=== PATIENT | male | born 1950 | race Caucasian/White ===

== ENCOUNTER 2024-04-19 13:12 | Outpatient (CLI) | payer BC, MEDICARE, SELFPAY ==
--- NOTE | ~2024-04-19 | CT_ITS ---
CT OF left knee EXAMINATION: CT knee LT w con DATE: 04/19/2024 14:05 INDICATION: TECHNIQUE: Computed tomography (CT) of the left knee was performed with intra-articular contrast. Aut omated exposure control and iterative reconstruction technique were employed. The dose-length product was 482.30 mGy-cm. COMPARISON: X-ray fluoroscopy injection left knee, same date. X-ray left knee 04/09/2024, images only. FINDINGS: Contrast adequately fills the joint space. Complex tear of the medial meniscus involving vertical and oblique tears in the body, extending into a horizontally oriented tear in the posterior horn. [employer] ior horn appears disproportionately large, as can be seen with the flipped fragment sign. Subchondral cysts in the LFC and medial tibial plateau. Severe cartilage thinning in the medial compartment with multifocal areas of full-thickness cartilage loss. The lateral meniscus is intact. Mild diffuse cart ilage thinning on the LFC. The ACL and PCL appear to be grossly intact. There is moderate medial join t space narrowing and mild tricompartmental osteophytosis. Cartilaginous fissure along the median rid ge of the patella. No fracture or dislocation. IMPRESSION: Complex tear of the medial meniscus involving a possible flipped fragment. Tricompartmental osteoarthritic change, moderate severe in the medial compartment where multifocal ar eas of full-thickness cartilage loss are noted. Full-thickness cartilage fissure on the median ridge of the patella. Reviewed, dictated and finalized at location K. IMPRESSION: Complex tear of the medial meniscus involving a possible flipped fragment. Tricompartmental osteoarthritic change, moderate severe in the medial compartme nt where multifocal areas of full-thickness cartilage loss are noted. Full-thic kness cartilage fissure on the median ridge of the patella.
--- NOTE | ~2024-04-19 | XR_ITS ---
EXAMINATION: XR fl inj knee LT for MR/CT DATE: 04/19/2024 14:05 INDICATION: Other tear of medial meniscus, recurrent injury. No prior surgery. TECHNIQUE: A time-out was performed to verify the patient's name, date of , and procedure to b e performed. The procedure including the risks, benefits, and alternatives was discussed with the pat ient. Risks discussed included bleeding and infection. The patient understood the risks and agreed to proceed. The skin overlying the left knee joint was prepped and draped in usual sterile fashion. An esthetic was administered with 1% lidocaine subcutaneously. A 22 G needle was advanced under fluoros copic guidance into the joint. Subsequently, injectate consisting of 40 mL of 1:10 1% lidocaine and 1:2 Omnipaque 240 was instilled. The needle was removed and the entry site was cleaned and dressed. There were no immediate complications. Fluoroscopy exposure time was 0.1 minutes. The total number o f images was 2. FINDINGS: Real-time fluoroscopy demonstrates the needle and contrast in the left knee joint. IMPRESSION: 1. Successful left knee joint injection of contrast for subsequent CT arthrography. Reviewed, dictated and finalized at location A. IMPRESSION: 1. Successful left knee joint injection of contrast for subsequent CT arthrogra phy.
== END 2024-04-19 13:13 | disposition home or self-care (01) ==
PROVIDERS: PCP Internal Medicine; Visit Provider Orthopaedic Surgery
DX: S83.232A Complex tear of medial meniscus, current injury, left knee, initial encounter (principal); M17.12 Unilateral primary osteoarthritis, left knee; X58.XXXA Exposure to other specified factors, initial encounter
CPT/HCPCS: 20610; 73701; 77002; Q9966

== ENCOUNTER 2024-05-31 08:17 | Outpatient (CLI) | payer BC, MEDICARE, SELFPAY ==
--- NOTE | 2024-05-31 08:29 | ECG_ITS ---
Test Date: 2024-05-31 08:41:25 Measurements Intervals [place] Rate: 65 P: 258 KS: 215 QRS: -68 QRSD: 212 T: 83 QT: 535 QTc: 558 Interpretive Statements ELECTRONIC ATRIAL PACEMAKER ELECTRONIC VENTRICULAR PACEMAKER BASELINE ARTIFACT- I, II, III, AVR, AVL, AVF NO FURTHER INTERPRETATION IS POSSIBLE ATYPICAL ECG No previous ECG available for comparison Electronically Signed On 05-31-2024 12:34:11 CDT by Dalton Brice D.O.
[2024-05-31 09:11] LABS: Anion Gap 10 mmol/L (4-12); Blood Urea Nitrogen 12 mg/dL (9-20); Calcium 9.3 mg/dL (8.4-10.2); Carbon Dioxide 32 mmol/L (22-30); Chloride 89 mmol/L (98-107); Estimated Glomerular Filt Rate > 60; Glucose 135 mg/dL (65-110); Sodium 131 mmol/L (137-145)
== END 2024-05-31 08:18 | disposition home or self-care (01) ==
LOC: ANHSURGERY 08:22
PROVIDERS: Anesthesiology; PCP Internal Medicine; Visit Provider Orthopaedic Surgery
DX: Z01.812 Encounter for preprocedural laboratory examination (principal); Z01.810 Encounter for preprocedural cardiovascular examination; I10 Essential (primary) hypertension; Z51.81 Encounter for therapeutic drug level monitoring; Z95.0 Presence of cardiac pacemaker
CPT/HCPCS: 36415; 80048; 93005

== ENCOUNTER 2024-06-10 00:57 | Day surgery (SDC) | payer BC, MEDICARE, SELFPAY ==
[2024-05-30 09:44] VITALS: BMI 27.3
--- NOTE | 2024-05-30 10:22 | PC.NURSE ---
Report to the Outpatient Waiting Room, entrance under the green pavilion located off [facility], at time ____08:00am___ on date _06/10/24 . Planned Procedure Time: ____10:00am____. Time changes happen often and if your time is changed the preop area will call you the afternoon before. - You and your visitor will be asked to self-screen and do not enter if you have any COVID symptoms. - A mask is optional within the hospital at this time. Patients may have clear liquids (water, carbonated beverages, clear teas, apple juice) until 3 hours prior to surgery with a maximum of 20 ounces. - No food from midnight until time of surgery Take the following medications with a SIP of water the morning of surgery: Flecainide & Metoprolol DO NOT STOP ANY OF YOUR OTHER PRESCRIPTION MEDICATIONS PRIOR TO SURGERY ?EXCEPT THE FOLLOWING Medications to discontinue per physician Hold Eliquis per Dr Masterson . Hold all vitamins, supplements 3 days preop per Anesthesia- last dose to take 06/06/24 Please no make-up, nail italian, hairspray, perfume, deodorant, or body powder the day of surgery. No jewelry (including any body piercings) or valuables the day of surgery, leave them at home. Please take a shower or bath the night before, or the morning of, surgery with an antibacterial soap. Wear comfortable, loose fitting clothing. - Jewelry must be removed prior to entering the operating room. Rings and piercings that are not removed may be cut off. - The hospital will not accept responsibility for valuables. - Please leave all valuables, including medications, at home the day of surgery. If you are going home after surgery, a licensed electric train driver must drive you home. - NO public transportation without another adult if you receive anesthesia. - We recommend that an adult stay with you for 24 hours following discharge. - We also recommend that you do not drive, make important decision, drink alcoholic beverages, or take any drugs that were not prescribed by your health care provider for at least 24 hours after your discharge time. Follow any additional instructions given to you from your surgeon. If you or anyone in your household have experienced Covid symptoms in the past week, please notify your surgeon or the nurse liaison at the phone number below for possible testing. Telephone instructions given to patient ____and asked if any additional questions and then verbalized understanding. Patient advised to call surgeon office or pre surgery nurse liaison [phone] if any additional questions.
--- NOTE | 2024-06-06 08:36 | PM.IMHP ---
H&P: HPI History of Present Illness Date/Time: 06/06/24 08:36 Chief Complaint: Patient is catching and locking and meniscal pathology left knee. He has failed conservative treatment like to consider knee arthroscopy. Review of Systems Musculoskeletal: Musculoskeletal: Reports arthralgias, Reports joint swelling and Reports stiffness [facility] Past Medical History Medical History Afib Diabetes History of gastroscopy Hyperlipidemia Hypertension Pacemaker Surgical History Surgical History History of colonoscopy History of hand surgery bilateral History of tonsillectomy History of tonsillectomy and adenoidectomy Family History Family History Mother Cancer Sibling Cancer Social History Social History Smoking status: Never smoker Alcohol intake: current Drinks per week: 12 Alcohol use details: beer Substance use type: does not use Current Housing: Decline to Answer Concerned About Future Housing: Decline to Answer Difficulty Paying Gas/Electric Bills: Decline to Answer Difficulty Paying for Meds: Decline to Answer Currently Unemployed: Decline to Answer Education: Decline to Answer Difficulty w/ Childcare or Family Care: Decline to Answer Living arrangements: with family Occupation/Education: occupation 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 [employer] concerns: No Meds Home Medications and Allergies Home Medications Medication Instructions Recorded Confirmed Type apixaban 5 mg tablet (Eliquis) 5 mg PO BID 04/09/24 05/30/24 History flecainide 100 mg tablet 100 mg PO Q12H 04/09/24 05/30/24 History lisinopril 20 1 tablet PO DAILY 04/09/24 05/30/24 History mg-hydrochlorothiazide 25 mg tablet magnesium oxide 400 mg (241.3 mg 400 mg PO DAILY 04/09/24 05/30/24 History magnesium) tablet metformin 500 mg tablet 500 mg PO BID 04/09/24 05/30/24 History metoprolol tartrate 50 mg tablet 50 mg PO BID 04/09/24 05/30/24 History rosuvastatin 10 mg tablet (Crestor) 10 mg PO DAILY 04/09/24 05/30/24 History acetaminophen 500 mg capsule 1,000 mg PO Q6H PRN Pain 05/30/24 05/30/24 History omega 5-suv-djs-fish oil 1,000 mg 1 cap PO BID 05/30/24 05/30/24 History (120 mg-180 mg) capsule (Fish Oil) Allergies Allergy/AdvReac Type Severity Reaction Status Date / Time No Known Allergies Allergy Verified 05/30/24 09:36 Exam Narrative: On exam he has mechanical catching and locking with manipulation of his left knee. He is tender medially has a positive Robin's. Neurologically he is grossly intact. He walks with an antalgic gait. He has pain with any motion. Eyes: General: appearance normal, both eyes and all related structures Neck: Neck: supple Resp: Effort & Inspection: normal respiratory effort Cardio: Rate: regular rate Rhythm: regular rhythm Radiology Reports: Comments: Patient: [place] CT OF left knee EXAMINATION: CT knee LT w con DATE: 04/19/2024 14:05 INDICATION: TECHNIQUE: Computed tomography (CT) of the left knee was performed with intra-articular contrast. Automated exposure control and iterative reconstruction technique were employed. The dose-length product was 482.30 mGy-cm. COMPARISON: X-ray fluoroscopy injection left knee, same date. X-ray left knee 04/09/2024, images only. FINDINGS: Contrast adequately fills the joint space. Complex tear of the medial meniscus involving vertical and oblique tears in the body, extending into a horizontally oriented tear in the posterior horn. Posterior horn appears disproportionately large, as can be seen with the flipped fragment sign. Subchondral cysts in the LFC and medial tibial plateau. Severe cartilage thinning in the medial
[2024-06-10] VITALS (8 sets, daily range): BP systolic 110–132; BP diastolic 74–78; PULSE 69–78; RESP 9–14; TEMP 36.2; O2SAT 96–100; BMI 27.6
[2024-06-10 06:42] LABS: Glucose Point of Care 122 mg/dl (65-105)
[2024-06-10] MEDS: KETOROLAC 15 MG/ML VIAL (*BKC) IV PUSH (06:45)
[2024-06-10] MEDS: ACETAMINOPHEN 500 MG TABLET 1000 MG PO (06:45)
[2024-06-10] MEDS: LACTATED RINGERS 1,000 ML 30 ML IV CONT (06:48)
--- NOTE | 2024-06-10 07:02 | WPDHPUPDATE1 ---
History and Physical Update Update Date/Time: 06/10/24 07:02 History and Physical has been reviewed, including an updated exam of the patient. There are NO changes in the patient's condition. Risks, benefits, and alternatives have been discussed and questions answered. Patient agrees to proceed with procedure.
[2024-06-10 07:08] LABS: Anion Gap 11 mmol/L (4-12); Blood Urea Nitrogen 11 mg/dL (9-20); Calcium 9.1 mg/dL (8.4-10.2); Carbon Dioxide 28 mmol/L (22-30); Chloride 93 mmol/L (98-107); Estimated CRCL calculation 65 ml/min; Estimated Glomerular Filt Rate > 60; Glucose 118 mg/dL (65-110); Potassium 3.6 mmol/L (3.4-5.0); Sodium 132 mmol/L (137-145)
--- NOTE | 2024-06-10 07:18 | WPDANESEPPF ---
Anes - Initial Pre Proc Eval Procedure: Operation Date: 06/10/24 07:30 Proposed Procedures p Left Knee Arthroscopy with Partial Meniscectomy, Proceed As Indicated - Mina Masterson MD Date/Time: 06/10/24 07:18 Surgeon: Mina Masterson MD Pre Op Diagnosis: Lt Knee Medial Meniscus Tear Patient Data Age: 73 Gender: M Height: 1.75 m Weight: 84.7 kg Last Vital Signs Temp 97.2 F L 06/10/24 06:44 Pulse 71 06/10/24 06:44 BP 125/77 06/10/24 06:44 Pulse Ox 96 06/10/24 06:44 O2 Del Method Room Air 06/10/24 06:44 Allergies Allergy/AdvReac Type Severity Reaction Status Date / Time No Known Allergies Allergy Verified 05/30/24 09:36 Home Medications Medication Instructions Recorded Confirmed Type apixaban 5 mg tablet (Eliquis) 5 mg PO BID 04/09/24 05/30/24 History flecainide 100 mg tablet 100 mg PO Q12H 04/09/24 05/30/24 History lisinopril 20 1 tablet PO DAILY 04/09/24 05/30/24 History mg-hydrochlorothiazide 25 mg tablet magnesium oxide 400 mg (241.3 mg 400 mg PO DAILY 04/09/24 05/30/24 History magnesium) tablet metformin 500 mg tablet 500 mg PO BID 04/09/24 05/30/24 History metoprolol tartrate 50 mg tablet 50 mg PO BID 04/09/24 05/30/24 History rosuvastatin 10 mg tablet (Crestor) 10 mg PO DAILY 04/09/24 05/30/24 History acetaminophen 500 mg capsule 1,000 mg PO Q6H PRN Pain 05/30/24 05/30/24 History omega 3-vnx-imq-fish oil 1,000 mg 1 cap PO BID 05/30/24 05/30/24 History (120 mg-180 mg) capsule (Fish Oil) Laboratory Tests 06/10/24 06/10/24 06:33 06:39 Sodium 132 L mmol/L (137-145) Potassium 3.6 mmol/L (3.4-5.0) Chloride 93 L mmol/L (98-107) Carbon Dioxide 28 mmol/L (22-30) Anion Gap 11 mmol/L (4-12) BUN 11 mg/dL (9-20) Creatinine 0.90 mg/dL (0.7-1.3) Estim Creat Clear Calc 65 ml/min Estimated GFR > 60 (59 - ) Glucose 118 H mg/dL (65-110) POC Capillary Glucose 122 H mg/dl (65-105) Calcium 9.1 mg/dL (8.4-10.2) Patient hx anesthesia problems: none Family hx anesthesia problems: none Results Review: All pre-operative results and documents have been reviewed as part of the pre-operative evaluation. [facility] Past Medical History Medical History Afib Diabetes History of gastroscopy Hyperlipidemia Hypertension Pacemaker Surgical History Surgical History History of colonoscopy History of hand surgery bilateral History of tonsillectomy History of tonsillectomy and adenoidectomy Family History Family History Mother Cancer Sibling Cancer Social History Social History Smoking status: Never smoker Alcohol intake: current Drinks per week: 12 Alcohol use details: beer Substance use type: does not use Current Housing: Decline to Answer Concerned About Future Housing: Decline to Answer Difficulty Paying Gas/Electric Bills: Decline to Answer Difficulty Paying for Meds: Decline to Answer Currently Unemployed: Decline to Answer Education: Decline to Answer Difficulty w/ Childcare or Family Care: Decline to Answer Living arrangements: with family Occupation/Education: occupation 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
[2024-06-10] MEDS: ceFAZolin 2 GM/D5W 50 ML 2 GM/50 ML BAG IVPB (07:20)
[2024-06-10] MEDS: LIDO 1%/EPINEPHRINE 1:100,000 20 ML VIAL INFILTRATE (07:38)
--- NOTE | 2024-06-10 07:54 | W.PM.PROC2 ---
Procedure Note - Detailed Date of Procedure 06/10/24 Pre-op Diagnosis LEFT Knee Medial Meniscus Tear Post-op Diagnosis Same Procedure Performed LEFT knee arthroscopy with partial meniscectomy Surgeon Mina Masterson MD Anesthesia General Indications Pain and Catching Description of Procedure Patient brought to operating room # 8. An anesthetic was administered. The knee was sterilely prepped and draped in the usual manner. Standard portals were used. Superior medial portal was used for the outflow cannula, inferior lateral portal was used for the scope, inferior medial portal was used for the instruments. Arthroscopy was performed, the patellar femoral joint degenerative changes. The medial compartment showed a complex tear with a flipped meniscus. He had grade 3 and 4 changes around the tear. The lateral compartment showed fraying. The ACL was intact. Using baskets and brynn the meniscal tear was trimmed back to a stable base so the nothing further could be pulled into the joint. Any loose or delaminated fragments were gently trimmed to a stable base. At this point the instruments were withdrawn, sutures placed and patient left the operating room in satisfactory condition. Estimated Blood Loss 20 Drains No Packing No Pathology None sent Complications No immediate complications Condition Stable Disposition PACU [facility] Billing Surgery - Charge Forward: Surgery Billing ([id number] Arthroscopy partial medial menisectomy)
[2024-06-10 08:23] LABS: Glucose Point of Care 136 mg/dl (65-105)
== END 2024-06-10 09:57 | disposition home or self-care (01) ==
PROVIDERS: Anesthesiology; PCP Internal Medicine; Visit Provider Orthopaedic Surgery
PROC: (CPT 29870; principal; 2024-06-10 07:30)
DX: S83.232A Complex tear of medial meniscus, current injury, left knee, initial encounter (principal); I10 Essential (primary) hypertension; E78.5 Hyperlipidemia, unspecified; E11.9 Type 2 diabetes mellitus without complications; I48.91 Unspecified atrial fibrillation; Z79.01 Long term (current) use of anticoagulants; Z79.84 Long term (current) use of oral hypoglycemic drugs; Z95.0 Presence of cardiac pacemaker; Z98.890 Other specified postprocedural states; Z80.9 Family history of malignant neoplasm, unspecified; X58.XXXA Exposure to other specified factors, initial encounter
CPT/HCPCS: 29881; 36415; 80048; 82948; A9270; J0690; J1100; J1885; J2405; J2704; J3010; J7120